=== PATIENT | female | born 1965 | race Caucasian/White ===

== ENCOUNTER → 2016-11-25 | Outpatient (CLI) | payer OTHER | LOC: BRMIMAGING 13:39 | PROVIDERS: ATTEND Surgery | DX: K40.91 Unilateral inguinal hernia, without obstruction or gangrene, recurrent (principal) | CPT/HCPCS: 76705-PO ==

== ENCOUNTER 2016-12-31 06:03 | Day surgery (SDC) | payer OTHER ==
[~2016-12-31 06:03] MED LIST: ceFAZolin 2 GM/DEXTROSE 100 ML IV ONE
[2016-12-31] MEDS ORDERED: LIDOCAINE 1% 2 ML INJ ONE (06:11)
[2016-12-31] MEDS ORDERED: LIDOCAINE 1% 5 ML SDV ID PRN (06:39)
[2016-12-31] MEDS ORDERED: LR 1,000 ML IV ONE (06:39)
[2016-12-31] MEDS ORDERED: fentaNYL 100 MCG/2 ML INJ ONE ×2 (06:44→08:16)
[2016-12-31] MEDS ORDERED: PROPOFOL/EMULSION 500 MG/50 ML BOTTLE IV ONE ×2 (06:44→07:40)
[2016-12-31] MEDS ORDERED: BUPIVACAINE 0.5% 30 ML SDV ONE (06:57)
[2016-12-31] MEDS ORDERED: LIDOCAINE 1% 30 ML SDV ONE (06:57)
[2016-12-31] MEDS ORDERED: SCOPOLAMINE HYDROBROMIDE 1.5 MG PATCH TD ONE (07:00)
[2016-12-31] MEDS ORDERED: LIDOCAINE 2% 5 ML SDV ONE (07:07)
[2016-12-31] MEDS ORDERED: DEXAMETHASONE 4 MG/ML VIAL ONE (07:07)
[2016-12-31] MEDS ORDERED: KETOROLAC 30 MG/1 ML SDV ONE (08:08)
--- NOTE | 2016-12-31 08:36 | GOP ---
[f rep st] OPERATIVE REPORT DATE OF OPERATION: 12/31/2016 SURGEON: Sindhu Trevizo MD SAP SENIOR DEVELOPER: Lidya Whitfield PA-C. ANESTHESIOLOGIST: Dr. Jayne Gamez/monitored anesthesia care with IV sedation. PREOPERATIVE DIAGNOSIS: Recurrent right inguinal hernia. POSTOPERATIVE DIAGNOSIS: Recurrent right inguinal hernia. PROCEDURE PERFORMED: Open right inguinal hernia repair with mesh. FINDINGS: Fat by round ligament. SPECIMENS: None. ESTIMATED BLOOD LOSS: 10 cc. INDICATIONS: Mis Welsh is a 51-year-old woman who had a previous robotic inguinal hernia repair. She developed a recurrent bulge on the right side. DESCRIPTION OF PROCEDURE: Mis was brought into the operating room, placed supine on the table, and monitored anesthesia care with IV sedation was performed. Her right groin was prepped and draped in the usual sterile fashion. I performed an ileal inguinal nerve block with 10 cc of 0.5% Marcaine mixed with 1% lidocaine as well as injected 10 cc where I would be making my incision. I made an incision in a skin crease stretched from the pubic tubercle toward the anterior superior iliac spine. I dissected down through the subcutaneous tissues. I divided Camper's and Jane's fascia. I identified the aponeurosis of the external oblique. I selected a point in its mid fibers. I opened it in the direction of its fibers toward the pubic tubercle and in the opposite direction. I created flaps. I protected the ilioinguinal nerve. I identified a small amount of fat and coincidentally at this time the patient coughed and the fat became much more prominent. I excised this. I divided the round ligament. I cleared the peritoneum above and below the defect. I sutured the defect closed with 2-0 Vicryl. I placed a piece of self-fixating ProGrip mesh. I anchored this to the pubic tubercle and along the conjoined tendon with 2-0 Prolene. I anchored it to the inguinal ligament with 2-0 Prolene. I closed the aponeurosis of the external oblique with 2-0 Vicryl. I closed Camper's and Jane's fascia with 3-0 Vicryl. I closed skin with 0 Vicryl, followed by 4-0 Monocryl. Mastisol, Steri-Strips, and a sterile dressing were applied. She was awakened in the operating room and transferred to PACU in stable condition. /[id number]/MODL MTDD
[2016-12-31] MEDS ORDERED: OXYCODONE/APAP 5/325 TAB PO PRN (09:37)
== END 2016-12-31 11:25 | disposition home or self-care (01) ==
LOC: FSGY 06:03
PROVIDERS: ATTEND Surgery
PROC: 0YU50JZ Supplement Right Inguinal Region with Synthetic Substitute, Open Approach (ICD-10-PCS; principal; 2016-12-31 07:30)
DX: K40.91 Unilateral inguinal hernia, without obstruction or gangrene, recurrent (principal); G47.33 Obstructive sleep apnea (adult) (pediatric); Z87.81 Personal history of (healed) traumatic fracture
CPT/HCPCS: C1781; J0690; J1100; J1885; J2704; J3010

== ENCOUNTER 2017-03-02 11:19 | Inpatient (IN) | payer OTHER ==
[2017-02-14 15:00] LABS: % IMMATURE GRANULYOCYTES 0.4 % (0.0-1.1); ABSOLUTE IMMATURE GRANULOCYTES 0.02 10^3/uL (0.00-0.10); ADD DIFF? NO; ADD MORPH? NO; ADD SCAN? NO; ATYPICAL LYMPHOCYTE FLAG 10 (0-99); FRAGMENT RBC FLAG 0 (0-99); HEMATOCRIT 40.2 % (38.0-47.0); HEMOGLOBIN 13.7 g/dL (12.6-16.3); LEFT SHIFT FLG 0 (0-99); LIPEMIA HEMOLYSIS FLAG 90 (0-99); MEAN CELL HEMOGLOBIN 33.3 pg (27.9-34.1); MEAN CELL HEMOGLOBIN CONCENTR. 34.1 g/dL (32.4-36.7); MEAN CELL VOLUME 97.6 fL (81.5-99.8); PLATELET CLUMPS FLAG 0 (0-99); PLATELET COUNT 192 10^3/uL (150-400); RED BLOOD CELL COUNT 4.12 10^6/uL (4.18-5.33); RED CELL DISTRIBUTION WIDTH 11.9 % (11.5-15.2)
[~2017-03-02 11:19] MED LIST changes: +ACETAMINOPHEN 325 MG TAB PO ONE; +CEFAZOLIN 2 GM/DEXTR 100 ML IV ONE; +CHLORHEXIDINE GLUC HIBICLENS 118 ML BTL TP ONE; +DEXAMETHASONE 4 MG/ML VIAL IVP ONE; +FAMOTIDINE 20 MG TAB PO ONE; +ROPI/epiNEPH/KETOROLAC JOINT COCKTAIL IU ONE; +TRANEXAMIC ACID 3,000 MG in NS 50 ML IRR ONE; +TRANEXAMIC ACID 3,000 MG/50 ML BAG IRR ONE; -ceFAZolin 2 GM/DEXTROSE 100 ML IV ONE
[2017-03-02] MEDS ORDERED: LR 1,000 ML IV ONE (12:03)
[2017-03-02] MEDS ORDERED: LIDOCAINE 1% 5 ML SDV ID PRN (12:03)
[2017-03-02] MEDS ORDERED: FAMOTIDINE 20 MG TAB ONE (12:07)
[2017-03-02] MEDS ORDERED: DEXAMETHASONE 4 MG/ML VIAL ONE (12:07)
[2017-03-02] MEDS ORDERED: LIDOCAINE 1% 2 ML INJ ONE (12:07)
[2017-03-02] MEDS ORDERED: ACETAMINOPHEN 325 MG TAB ONE (12:08)
[2017-03-02] MEDS ORDERED: CEFAZOLIN 2 GM/DEXTROSE/100 ML BAG IV ONE (12:08)
[2017-03-02] MEDS ORDERED: fentaNYL 100 MCG/2 ML INJ ONE ×2 (12:16→15:52)
[2017-03-02] MEDS ORDERED: MIDAZOLAM 2 MG/2 ML VIAL ONE (13:09)
[2017-03-02] MEDS ORDERED: PROPOFOL/EMULSION 500 MG/50 ML BOTTLE IV ONE ×2 (13:50→14:40)
[2017-03-02] MEDS ORDERED: LACTULOSE 20 GM/30 ML UDCUP PO PRN (13:54)
[2017-03-02] MEDS ORDERED: DIPHENOXYLATE/ATROPINE LOMOTIL 1 TAB PO PRN (13:54)
[2017-03-02] MEDS ORDERED: diphenhydrAMINE 25 MG CAP PO PRN (13:54)
[2017-03-02] MEDS ORDERED: ONDANSETRON DISINTEGRATING 4 MG TAB PO PRN (13:54)
[2017-03-02] MEDS ORDERED: POLYETHYLENE GLYCOL 3350 17 GM PKT PO PRN (13:54)
[2017-03-02] MEDS ORDERED: CYCLOBENZAPRINE 10 MG TAB PO PRN (13:54)
[2017-03-02] MEDS ORDERED: METOCLOPRAMIDE 10 MG/2 ML VIAL IVP PRN (13:54)
[2017-03-02] MEDS ORDERED: BISACODYL 10 MG SUPP PR PRN (13:54)
[2017-03-02] MEDS ORDERED: PHARMACY PAIN CONSULT 1 EA MISC PRN (13:54)
[2017-03-02] MEDS ORDERED: TEMAZEPAM 15 MG CAP PO PRN (13:54)
[2017-03-02] MEDS ORDERED: ONDANSETRON 4 MG/2 ML VIAL IVP PRN (13:54)
[2017-03-02] MEDS ORDERED: MAGNESIUM HYDROXIDE 30 ML UDCUP PO PRN (13:54)
[2017-03-02] MEDS ORDERED: PROMETHAZINE HCL 25 MG SUPPR PR PRN (13:54)
[2017-03-02] MEDS ORDERED: PROMETHAZINE HCL 25 MG/ML INJ IVP PRN (13:54)
[2017-03-02] MEDS ORDERED: HYDROmorphONE/DILAUDID 1 MG/ML SYR ONE (16:11)
--- NOTE | 2017-03-02 16:23 | POSTOPPROG ---
Post Op Note Date of Operation: 03/02/17 Surgeon: Sylvester Silva Concert Manager: Leatha Silva PAc Anesthesiologist: Stoney Anesthesia: Spinal Pre-op Diagnosis: L failed femoral neck ORIF Post-op Diagnosis: same Indication: pain Procedure: conversion of failed hip surgery to L MAURA Findings: femoral neck non union Inf/Abcess present in the surg proc area at time of surgery?: No EBL: 100-500
[2017-03-02] MEDS: oxyCODONE IR 5 MG TAB PO PRN (18:43)
[2017-03-02] MEDS: ACETAMINOPHEN 325 MG TAB PO SCH (18:46)
[2017-03-02] MEDS: LR 1,000 ML IV SCH (18:50)
[2017-03-02] MEDS: ceFAZolin 2 GM/DEXTROSE 100 ML IV SCH (22:07)
[2017-03-02] MEDS: FAMOTIDINE 20 MG TAB PO SCH (22:33)
[2017-03-02] MEDS: SENNOSIDES/DOCUSATE SODIUM TAB PO SCH (22:33)
[2017-03-02] MEDS: ASPIRIN 325 MG TAB PO SCH (22:41)
[2017-03-03] MEDS: ACETAMINOPHEN 325 MG TAB PO SCH ×3 (00:17→05:57)
[2017-03-03] MEDS: LR 1,000 ML IV SCH (03:22)
--- NOTE | 2017-03-03 05:23 | GOP ---
[f rep st] OPERATIVE REPORT DATE OF OPERATION: 03/02/2017 SURGEON: Bailee Silva MD ANESTHESIA: Spinal. PREOPERATIVE DIAGNOSIS: Left femoral neck nonunion. POSTOPERATIVE DIAGNOSIS: Left femoral neck nonunion. PROCEDURE PERFORMED: Total hip arthroplasty conversion from failed previous hip surgery. FINDINGS: ESTIMATED BLOOD LOSS: 200 ml INDICATIONS: The patient has progressively worsening arthritis of the hip which has failed medical management. The patient understands the treatment options including continued non-operative care an d has selected surgical intervention. The patient has decided to undergo total hip arthroplasty via the direct anterior approach, understanding the risks of the procedure including, but not limited t o, neurovascular injury, infection, persistent pain, component wear and loosening, deep venous throm bosis, pulmonary embolism, limb length inequality, hip instability (including dislocation), and intr a-operative fractures. DESCRIPTION OF PROCEDURE: After proper identification of the patient including verification and mar bobo the surgical site, the patient was brought to the operating room and placed in the supine posit ion. All bony prominences were well padded. Anesthesia was induced without complication and intrav enous prophylactic antibiotics were administered prior to skin incision. Prior to starting with our usual approach, incision was made through the patient's prior lateral inc ision. Four screws were identified and removed without difficulty. This incision was then irrigate d and closed in layers. The operative leg was placed in the Trumpf Arch table extension and the well leg in a Yellofin leg h older. The patient was prepped and draped in the usual sterile fashion. The C-arm was draped for i ntra-operative fluoroscopy to check acetabular position, femoral component position including leg le ngth and femoral offset. Attention was then drawn to surgical exposure of the hip. An incision was made with a #10 [employer] er blade starting 3 cm lateral and 3 cm distal to the anterior superior iliac spine measuring 8-10 c m and coursing distally toward the greater trochanter. The skin and subcutaneous tissues were divid ed sharply down to the fascia lexi. The fascia lexi was incised in line with the skin incision expo sing the underlying tensor fascia lexi muscle. The muscle was bluntly elevated from the fascia and the first extracapsular Cobra retractor was placed laterally at the junction of the superior femoral neck and greater trochanter. The lateral femoral circumflex vessels were identified, cauterized, a nd divided with the Aquamantys bipolar cautery. The deep investing fascia of the TFL was divided to allow proper mobilization of the muscle preventing damage during the retraction. The reflected hea d of the rectus femoris muscle was elevated off the anterior hip capsule and a medial Cobra retracto r was placed just proximal to the lesser trochanter. The anterior capsulotomy was made sharply from the superolateral acetabulum to the saddle junction o f the superior femoral neck and greater trochanter, then coursing inferomedial towards the lesser tr ochanter. The retractors were then placed in the intracapsular position for femoral neck osteotomy. Corresponding to pre-operative templating, the osteotomy was made with the oscillating saw careful ly protecting the greater trochanter and soft tissues. The femoral head was removed from the acetab ulum with a corkscrew and confirmed to be severely arthritic with exposed bone, deformity and osteop hytes. Similar findings were confirmed in the acetabulum. The Arch table extension was then placed in 40 degrees external rotation. Attention was then drawn to the acetabular preparation. After placement of the anterior and posteri or Cobra retractors outside the labrum and intracapsular, the circumferential labrum was removed sha rply. The foveal contents were then removed and hemostasis obtained with cautery. The first reamer selected was sized using the removed femoral head. Reaming began with medializatio n and then commenced in 2 mm increments at 45 degrees of abduction and 15 degrees of anteversion usi ng fluoroscopic navigation. Reaming ceased 1 mm less than the definitive acetabular component and c orresponded to the pre-operative templating. The final acetabular component was inserted using fluo roscopy to achieve proper orientation yielding excellent purchase and stability in the acetabulum. The final acetabular liner was then placed and its seating confirmed. Attention was then turned to the femur. The Arch table extension was placed in extension and adduct ion, delivering the osteotomized femoral neck into the wound. A 2-pronged femoral elevator was plac ed at the calcar and another at the tip of the greater trochanter. The posterolateral capsule was r eleased with cautery allowing mobilization of the femur lateral and anterior for preparation. The e xternal rotators were visualized and preserved. A curette and rongeur were used to open the startin g point for broaching. Serial broaching started with the #0 broach and ended with the broach that e xhibited excellent fit in the proximal femur. A change in pitch during mallet strikes was accompani ed by the inability to advance the broach any further. The trial reduction was performed and fluoro scopic navigation was utilized to check limb length. Adjustments were made to equalize limb length accordingly. After the final trials were accepted they were removed and the wound was copiously lavaged. The fem oral component was seated to the same depth as the final broach and the femoral head was impacted on to the clean trunnion. The hip was then reduced for the final time and once more fluoroscopy was us ed to check that limb length equality was achieved. The wound was irrigated and closed in layers, the fascia lexi with 2-0 Quill, the subcutaneous tissu e with 2-0 Quill, and the skin with Dermabond. Sterile dressings were applied. Final sharps and sp onge counts were accurate. The patient was then transferred to a hospital bed and brought to the re covery room in stable condition. IMPLANTS: Accolade II, size 4, L127. Acetabular component is a 56 mm Tritanium. Liner is a Triden t X3 32 mm. Head is a Biolox Delta 32 mm +0. /[id number]/MODL
[2017-03-03 05:43] LABS: HEMATOCRIT 30.9 % (38.0-47.0); HEMOGLOBIN 10.6 g/dL (12.6-16.3)
[2017-03-03] MEDS: ceFAZolin 2 GM/DEXTROSE 100 ML IV SCH (05:57)
[2017-03-03 07:37] VITALS: PULSE 69; RESP 14; TEMP 98
[2017-03-03] MEDS: SENNOSIDES/DOCUSATE SODIUM TAB PO SCH (08:20)
[2017-03-03] MEDS: ASPIRIN 325 MG TAB PO SCH (08:20)
[2017-03-03] MEDS: oxyCODONE IR 5 MG TAB PO PRN ×2 (08:20→11:43)
[2017-03-03] MEDS: FAMOTIDINE 20 MG TAB PO SCH (08:20)
[2017-03-03 10:05] VITALS: BP 105/74; O2SAT 95
--- NOTE | 2017-03-03 19:56 | SOAPPROG ---
SOAP Progress Note Assessment/Plan: Assessment: Mis is doing well POD 1 s/p L MAURA and hardware removal 1) pain management: pain is well controlled on oral pain meds 2) VTE ppx: recommend aspirin daily 3) anemia: level expected initially postop, continue to monitor 4) d/c planning: d/c to home. 5) TTWB: toe touch weight bearing x 6 weeks 6) nausea: patient states zofran was helpful, sent script to pharmacy via [facility] EMR system Plan: 03/03/17 19:53 Subjective: doing well today, mod nausea last night, zofran alleviated it. denies SOB, chest pain and N/V. Objective: Vital Signs Temp Pulse Resp BP Pulse Ox 36.7 C 69 14 105/74 95 03/03/17 07:32 03/03/17 07:32 03/03/17 07:32 03/03/17 08:22 03/03/17 08:22 Laboratory Results 03/03/17 05:03 03/02/17 03/03/17 03/04/17 05:59 05:59 05:59 Intake Total 2049 Output Total 1050 500 Balance 1000 -500 LLE: incision dressing is clean and dry, NVI, +pf/df ICD10 Worksheet Patient Problems: Problems Problem Status Onset Fracture of femoral neck Acute
--- NOTE | 2017-03-04 21:03 | GDS ---
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 PROCEDURE: Left total hip arthroplasty and hardware removal. VTE PROPHYLAXIS: Aspirin recommended 3 weeks daily. BRIEF DESCRIPTION OF HOSPITAL STAY: Patient was admitted for an elective joint arthroplasty. The p atient tolerated the procedure well and has passed physical therapy. The patient was given appropri ate antibiotic prophylaxis and venous thromboembolism prophylaxis. The patient's pain was well cont rolled on oral pain medication, patient was holding down food, and had urinated. Decision was made to discharge the patient. The patient was given post-operative prescriptions pre-operatively. PLAN: Follow up as scheduled with Dr. Silva's office March 21 at 10:30 a.m. /[id number]/MODL
== END 2017-03-03 11:50 | disposition home or self-care (01) | DRG 470 ==
LOC: F3E 11:19 → F3N 18:39
PROVIDERS: ADMIT Orthopaedic Surgery; ATTEND Orthopaedic Surgery
PROC: 0SRB0JZ Replacement of Left Hip Joint with Synthetic Substitute, Open Approach (ICD-10-PCS; principal; 2017-03-02 13:15)
DX: S72.092K Other fracture of head and neck of left femur, subsequent encounter for closed fracture with nonunion (principal); G47.33 Obstructive sleep apnea (adult) (pediatric)
CPT/HCPCS: 97110-GP; 97161-GP; 97165-GO; C1769; J0171; J0690; J1100; J1170; J1885; J2250; J2405; J2550; J2704; J2795; J3010